=== PATIENT | female | born 1985 | race Caucasian/White ===

== ENCOUNTER → 2020-09-21 | Outpatient (REF) | payer OTHER ==
[2020-09-21 17:58] LABS: HEMATOCRIT 40.5 % (36.0-47.0); HEMOGLOBIN 13.2 g/dl (12.0-15.5); MEAN CORPUSCULAR HEMOGLOBIN 30.3 pg (27.0-33.0); MEAN CORPUSCULAR HGB CONC 32.6 g/dl (32.0-36.5); MEAN CORPUSCULAR VOLUME 92.9 fl (80.0-96.0); PLATELET COUNT, AUTOMATED 313 10^3/uL (150-450); RED BLOOD COUNT 4.36 10^6/uL (4.00-5.40); WHITE BLOOD COUNT 10.2 10^3/uL (4.0-10.0)
[2020-09-21 19:17] LABS: HEPATITIS C VIRUS ABY INDEX < 0.0 INDEX (<0.8); HIV 1&2 SCREEN CENTAUR NEGATIVE (NEGATIVE)
[2020-09-21 19:34] LABS: CHLAMYDIA DNA AMPLIFICATION NEGATIVE (NEGATIVE); GC DNA AMPLIFICATION NEGATIVE (NEGATIVE)
== END ==
LOC: M PLALAB 15:46
PROVIDERS: ATTEND Advanced Practice Midwife
DX: O09.521 Supervision of elderly multigravida, first trimester (principal)

== ENCOUNTER → 2020-11-16 | Outpatient (REF) | payer OTHER | LOC: M PLALAB 10:46 | PROVIDERS: ATTEND Obstetrics & Gynecology | DX: Z3A.18 18 weeks gestation of pregnancy (principal) ==

== ENCOUNTER → 2020-11-17 | Outpatient (CLI) | payer OTHER ==
--- NOTE | 2020-11-18 14:11 | REP ---
INDICATION: ANATOMY/PRACENTA PREVIA. COMPARISON: None. TECHNIQUE: Transabdominal obstetric scanning. FINDINGS: Scanning through the gravid uterus demonstrates a viable single intrauterine gestation in variable lie. motion is observed and heart rate is recorded at 136 beats per minute. A posterior placenta is seen, grade 1, without evidence of placenta previa. Closed cervical length is measured at 4.1 cm transabdominally. No extrauterine abnormality is observed. Amniotic fluid is subjectively normal. No anomaly is seen. The following anatomic structures are identified and felt to be sonographically unremarkable: cranium, choroid plexus, cavum, cerebellum and posterior fossa, face and profile, lungs, four-chamber heart with left and right ventricular outflow tract views, diaphragm, left-sided stomach, abdominal wall cord insertion, three-vessel umbilical cord, kidneys and bladder, spine, and upper and lower extremities. Biometry chart: BPD 3.9 cm, 17 weeks 6 days Head circumference 15.5 cm, 18 weeks 3 days Abdominal circumference 13.8 cm, 19 weeks 1 day Femur length 2.9 cm, 18 weeks 5 days Humeral length 2.9 cm, 19 weeks 3 days HC AC ratio normal 1.12 Cephalic index normal 0.68 Estimated weight 264 g, 0 lb 9 oz, greater than 97th percentile for 18 weeks 0 days There is a apparent venous Ball or cyst along the anterior margin of the placenta 4 cm in greatest diameter. Previous scar is noted in the lower uterine segment anterior myometrium. IMPRESSION: Viable single intrauterine gestation at 18 weeks 5 days by today's composite sonographic criteria. ZAHRA by today's sonography April 15, 2021.. No complication identified. Expected gestational age estimate based on known ZAHRA April 20, 2021 is 18 weeks 0 days. <Electronically signed by Chalo Wayne > 11/18/20 [id number]
== END ==
LOC: M WHC 08:28
PROVIDERS: ATTEND Advanced Practice Midwife
DX: O34.211 Maternal care for low transverse scar from previous cesarean delivery (principal); Z3A.18 18 weeks gestation of pregnancy

== ENCOUNTER → 2020-11-17 | Outpatient (REF) | payer OTHER | LOC: M SFHCWAGY 13:40 | PROVIDERS: ATTEND Obstetrics & Gynecology | DX: Z3A.18 18 weeks gestation of pregnancy (principal) ==

== ENCOUNTER → 2021-01-12 | Outpatient (REF) | payer OTHER ==
[2021-01-12 14:02] LABS: HEMOGLOBIN 12.4 g/dl (12.0-15.5); MEAN CORPUSCULAR HEMOGLOBIN 30.7 pg (27.0-33.0); MEAN CORPUSCULAR HGB CONC 31.8 g/dl (32.0-36.5); MEAN CORPUSCULAR VOLUME 96.5 fl (80.0-96.0); PLATELET COUNT, AUTOMATED 233 10^3/uL (150-450); RED BLOOD COUNT 4.04 10^6/uL (4.00-5.40); WHITE BLOOD COUNT 10.6 10^3/uL (4.0-10.0)
== END ==
LOC: M PLALAB 08:38
PROVIDERS: ATTEND Specialist
DX: Z34.82 Encounter for supervision of other normal pregnancy, second trimester (principal); Z3A.00 Weeks of gestation of pregnancy not specified

== ENCOUNTER → 2021-02-07 | Outpatient (REF) | payer OTHER | LOC: M SFHCWAGY 13:14 | PROVIDERS: ATTEND Obstetrics & Gynecology | DX: R30.0 Dysuria (principal) ==

== ENCOUNTER → 2021-03-23 | Outpatient (REF) | payer OTHER | LOC: M SFHCWAGY 17:07 | PROVIDERS: ATTEND Advanced Practice Midwife | DX: Z34.83 Encounter for supervision of other normal pregnancy, third trimester (principal); Z3A.36 36 weeks gestation of pregnancy ==

== ENCOUNTER → 2021-03-30 | Outpatient (CLI) | payer OTHER ==
--- NOTE | 2021-03-30 10:25 | REP ---
INDICATION: UTERINE SIZE DATE DISCREPANCY,GROWTH AND ZENA. COMPARISON: Comparison obstetric sonography November 17, 2020.. TECHNIQUE: Transabdominal obstetric sonogram. FINDINGS: Scanning through the gravid uterus demonstrates a viable single intrauterine gestation in cephalic lie. motion is observed and heart rate is recorded at 155 beats per minute. A posterior placenta is seen, grade 2, without evidence of placenta previa. Closed cervical length is not measured due to low head position.. No extrauterine abnormality is observed. Amniotic fluid is subjectively normal. ZENA is normal 14.1 cm.. Four-chamber heart view is achieved today and is felt to be normal.. Biometry chart: BPD 9.3 cm, 37 weeks 5 days Head circumference 33.2 cm, 37 weeks 6 days Abdominal circumference 34.0 cm, 37 weeks 6 days Femur length 7.3 cm, 37 weeks 1 day Humeral length 6.4 cm, 37 weeks 0 days HC AC ratio normal 0.98 Cephalic index normal 0.79 Estimated weight 3274 g, 7 lb 3 oz, 73rd percentile for 37 weeks 0 days SD ratio in the umbilical cord artery by Doppler normal 1.96 IMPRESSION: Viable single intrauterine gestation at 37 weeks 0 days by today's composite sonographic criteria. ZAHRA by today's sonography April 16, 2021. No complication identified. Expected gestational age estimate based on known ZAHRA of April 20, 2021 is 37 weeks 0 days. There is no evidence of placenta previa. <Electronically signed by Chalo Wayne > 03/30/21 1029
== END ==
LOC: M WHC 08:04
PROVIDERS: ATTEND Advanced Practice Midwife
DX: O26.849 Uterine size-date discrepancy, unspecified trimester (principal)

== ENCOUNTER 2021-04-27 12:14 | Inpatient (IN) | payer OTHER ==
[2021-04-27] VITALS (21 sets, daily range): BP systolic 115–154; BP diastolic 65–93
[~2021-04-27] VITALS: Ht 180.3 cm; Wt 97.6 kg
[2021-04-27] MEDS ORDERED: PRENTAB9 PO (12:46)
[2021-04-27] MEDS ORDERED: HOME MED LIST COMPLETE! XX SCH (12:50)
[2021-04-27] MEDS ORDERED: PENICILLIN G POTASSIUM IV 5 MU in D5W MINI-BAG PLUS 100 ML IV STA (13:08)
[2021-04-27] MEDS ORDERED: LACTATED RINGER'S 1000 ML IV STA (13:08)
[2021-04-27] MEDS ORDERED: LIDOCAINE 1% MDV 20ML VIAL INFIL PRN (13:10)
[2021-04-27] MEDS ORDERED: OXYTOCIN DRIP 30 UNITS in IV 1 EA IV SCH (13:10)
[2021-04-27] MEDS ORDERED: CARBOPROST TROMETHAMINE 250 MCG/ML AMP IM PRN (13:10)
[2021-04-27] MEDS ORDERED: TRANEXAMIC ACID INJection 1,000 MG in NS 100 ML IV PRN (13:10)
[2021-04-27] MEDS ORDERED: METHYLERGONOVINE MALEATE 0.2 MG/ML VIAL (J2210) IM PRN (13:10)
[2021-04-27 14:13] LABS: HEMATOCRIT 35.6 % (36.0-47.0); HEMOGLOBIN 11.9 g/dl (12.0-15.5); MEAN CORPUSCULAR HEMOGLOBIN 30.8 pg (27.0-33.0); MEAN CORPUSCULAR HGB CONC 33.4 g/dl (32.0-36.5); MEAN CORPUSCULAR VOLUME 92.2 fl (80.0-96.0); PLATELET COUNT, AUTOMATED 195 10^3/uL (150-450); RED BLOOD COUNT 3.86 10^6/uL (4.00-5.40); WHITE BLOOD COUNT 9.7 10^3/uL (4.0-10.0)
[2021-04-27] MEDS: PENICILLIN G POTASSIUM IV 2.5 MU in IV 1 EA IV SCH ×2 (18:04→22:02)
[2021-04-27] MEDS: LR 1,000 ML IV SCH (20:46)
[2021-04-28] VITALS (15 sets, daily range): BP systolic 105–147; BP diastolic 61–96
[2021-04-28] MEDS: LR 1,000 ML IV SCH (02:11)
[2021-04-28] MEDS: PENICILLIN G POTASSIUM IV 2.5 MU in IV 1 EA IV SCH (02:17)
[2021-04-28] MEDS ORDERED: OXYTOCIN DRIP 30 UNITS in IV 1 EA IV SCH (05:45)
[2021-04-28] MEDS ORDERED: LR 1,000 ML IV SCH (05:45)
[2021-04-28] MEDS ORDERED: ACETAMINOPHEN 500 MG TAB PO PRN (05:45)
[2021-04-28] MEDS ORDERED: ONDANSETRON 4MG/2ML VIAL IV PRN (05:45)
[2021-04-28] MEDS ORDERED: MEASLES,MUMPS,RUBELLA VACCINE INJ (MMR-II) (90707) SC SCH (05:45)
[2021-04-28] MEDS ORDERED: DIBUCAINE 1% OINTMENT 30GM TOP PRN (05:45)
[2021-04-28] MEDS ORDERED: ACETAMINOPHEN TAB 650MG DOSE (2X325MG) PO PRN (05:45)
[2021-04-28] MEDS ORDERED: IBUPROFEN 600MG TAB PO PRN (05:45)
[2021-04-28] MEDS ORDERED: RHOGAM 300 MCG (1500 IU) INJ (J2790) IM SCH (05:45)
[2021-04-28] MEDS: IBUPROFEN 800 MG TAB PO PRN ×2 (07:35→16:01)
[2021-04-28] MEDS: PRENATAL VITAMINS CHEWABLE TABLET PO SCH (09:12)
[2021-04-28] MEDS: DOCUSATE SODIUM 100MG CAPSULE PO PRN ×2 (09:13→20:57)
[2021-04-29] MEDS: IBUPROFEN 800 MG TAB PO PRN (04:06)
[2021-04-29 06:00] VITALS: BP 118/74
[2021-04-29] MEDS: PRENATAL VITAMINS CHEWABLE TABLET PO SCH (08:58)
[2021-04-29 09:05] VITALS: BP 118/74
[2021-04-29 18:00] VITALS: BP 130/74
== END 2021-04-29 19:00 | disposition home or self-care (01) | DRG 560 ==
LOC: M LDI 12:14 → M OBS 04-28 08:29
PROVIDERS: ADMIT Obstetrics & Gynecology; ATTEND Obstetrics & Gynecology
PROC: 3E033VJ Introduction of Other Hormone into Peripheral Vein, Percutaneous Approach (ICD-10-PCS; 2021-04-27)
PROC: 10907ZC Drainage of Amniotic Fluid, Therapeutic from Products of Conception, Via Natural or Artificial Opening (ICD-10-PCS; 2021-04-27)
PROC: 10E0XZZ Delivery of Products of Conception, External Approach (ICD-10-PCS; principal; 2021-04-28)
DX: O48.0 Post-term pregnancy (principal); O34.219 Maternal care for unspecified type scar from previous cesarean delivery; Z3A.41 41 weeks gestation of pregnancy; Z37.0 Single live birth; O99.824 Streptococcus B carrier state complicating childbirth; O70.1 Second degree perineal laceration during delivery

== ENCOUNTER → 2024-11-06 | Outpatient (REF) | payer OTHER ==
[~2024-11-06] MED LIST: PRENTAB9 PO
[2024-11-10 14:37] LABS: HPV APTIMA Not Detected (Not Detected)
== END ==
LOC: M SFHCWAGY 15:53
PROVIDERS: ATTEND Advanced Practice Midwife
DX: Z12.4 Encounter for screening for malignant neoplasm of cervix (principal); R87.615 Unsatisfactory cytologic smear of cervix

== ENCOUNTER → 2024-12-10 | Outpatient (CLI) | payer OTHER | LOC: M WHC 11:59 | PROVIDERS: ATTEND Advanced Practice Midwife | DX: N83.201 Unspecified ovarian cyst, right side (principal); Z12.31 Encounter for screening mammogram for malignant neoplasm of breast; R92.323 Mammographic fibroglandular density, bilateral breasts; N88.8 Other specified noninflammatory disorders of cervix uteri ==

== ENCOUNTER → 2024-12-22 | Outpatient (CLI) | payer OTHER | LOC: M WHC 08:35 | PROVIDERS: ATTEND Advanced Practice Midwife | DX: R92.8 Other abnormal and inconclusive findings on diagnostic imaging of breast (principal); R92.323 Mammographic fibroglandular density, bilateral breasts; N63.21 Unspecified lump in the left breast, upper outer quadrant ==

== ENCOUNTER → 2025-03-17 | Outpatient (CLI) | payer OTHER | LOC: M WHC 13:32 | PROVIDERS: ATTEND Advanced Practice Midwife | DX: N80.129 Deep endometriosis of ovary, unspecified ovary (principal); N83.291 Other ovarian cyst, right side ==

== ENCOUNTER 2025-06-30 09:05 | Day surgery (SDC) | payer OTHER ==
[~2025-06-30] VITALS: Ht 180.3 cm; Wt 93.0 kg
[~2025-06-30 09:05] MED LIST changes: +ACETAMINOPHEN 1000MG/100ML IV BAG As Ordered ONE; +GLYCOPYRROLATE INJ 0.2 MG/ML 2 ML VIAL As Ordered ONE; +KETOROLAC 30 MG/ML 1 ML VIAL As Ordered ONE; +LIDOCAINE 2% 100 MG/5 ML SDV (FOR ANES.) As Ordered ONE; +MIDAZOLAM INJ 2 MG/2 ML VIAL As Ordered ONE; +ONDANSETRON 4MG/2ML VIAL As Ordered ONE; +ROCURONIUM BROMIDE 50MG/5ML VIAL As Ordered ONE; +SUGAMMADEX SODIUM 200 MG/2 ML VIAL As Ordered ONE; +dexAMETHasone 4 MG/ML 1 ML VIAL As Ordered ONE
[2025-06-30] MEDS: LR 1,000 ML IV SCH (09:30)
[2025-06-30] MEDS ORDERED: dexmedeTOMIDine (4 MCG/ML) 200 MCG/50 ML BTL As Ordered ONE (10:07)
[2025-06-30] MEDS: SCOPOLAMINE 1MG TRANSDERMAL PATCH TOP ONE (10:35)
[2025-06-30] MEDS ORDERED: HYDROmorphone HCL 2 MG/ML 1 ML VIAL As Ordered ONE (12:10)
[2025-06-30] MEDS ORDERED: HYDROMORPHONE HCL 0.5 MG/0.5 ML SYRINGE IV PRN (13:35)
[2025-06-30] MEDS ORDERED: LR 1,000 ML IV SCH (13:35)
[2025-06-30] MEDS: ONDANSETRON 4MG/2ML VIAL IV PRN (14:59)
[2025-06-30 16:00] VITALS: BP 95/54; TEMP 98.1; O2SAT 98
== END 2025-06-30 16:05 | disposition home or self-care (01) ==
LOC: M SDC 09:05
PROVIDERS: ATTEND Obstetrics & Gynecology
DX: N83.01 Follicular cyst of right ovary (principal); N84.1 Polyp of cervix uteri; N80.101 Endometriosis of right ovary, unspecified depth; N39.3 Stress incontinence (female) (male); Z88.2 Allergy status to sulfonamides
CPT/HCPCS: 58558; 58661; 81025; 88305; J0131; J0665; J1100; J1171; J1596; J1885; J2250; J2405; J2765; J3010